=== PATIENT | female | born 1955 | race Caucasian/White ===

== ENCOUNTER 2017-09-23 08:15 | Day surgery (SDC) | payer BC ==
[~2017-09-23 08:15] MED LIST: Lactated Ringers 1,000 ML IV SCH; Sodium Chloride 0.9% 10 ML Syringe FLUSH PRN
[2017-09-23] MEDS ORDERED: Propofol 200 MG/20 ML SDV IV ONE (09:41)
[2017-09-23] MEDS ORDERED: Midazolam 1 MG/ML 2 ML SDV IV ONE (09:41)
[2017-09-23] MEDS ORDERED: Simethicone Drops 40 MG/0.6 ML 30 ML Bottle ONE (09:55)
--- NOTE | 2017-09-23 10:10 | PCM.OPNOTE ---
- General Post-Op/Procedure Note Date of Surgery/Procedure: 09/23/17 Operative Procedure(s): c scope Findings: normal exam Pre Op Diagnosis: change in bowel habits . family hx of colon ca Post-Op Diagnosis: normal scope Anesthesia Technique: MAC Primary Surgeon: Toney Ruiz Anesthesia Provider: Enedina Spence Pathology: none Complications: None Condition: Good Free Text/Narrative:: see dictation
--- NOTE | 2017-09-23 11:08 | OR ---
DATE OF OPERATION: 09/23/2017 SURGEON: Toney Ruiz MD PROCEDURE PERFORMED: Colonoscopy. PREOPERATIVE DIAGNOSIS: Change in bowel habits. POSTOPERATIVE DIAGNOSIS: Normal colonoscopy. INDICATIONS FOR PROCEDURE: This is a 61-year-old white female who was referred with a complaint of some change in her bowel habits. In addition, she does have a family history of colon cancer. She was offered and accepted colonoscopy. DESCRIPTION OF PROCEDURE: After an excellent IV sedation was administered, digital rectal exam was performed. No marked abnormality was noted. Flexible colonoscope was inserted and advanced to the cecum without difficulty. The following findings were noted. Ascending colon, unremarkable. Transverse colon, unremarkable. Descending colon, unremarkable. Sigmoid and rectum, unremarkable. Colon was deflated as the scope was removed. The patient tolerated the procedure well and was taken to the recovery room in a good condition. /[id number] /MARCIO
== END 2017-09-23 11:10 | disposition home or self-care (01) ==
LOC: FB.SDS 08:15
PROVIDERS: ATTEND Surgery
DX: R19.4 Change in bowel habit (principal); I10 Essential (primary) hypertension; M19.90 Unspecified osteoarthritis, unspecified site; E66.01 Morbid (severe) obesity due to excess calories; E78.5 Hyperlipidemia, unspecified; Z80.0 Family history of malignant neoplasm of digestive organs; Z90.49 Acquired absence of other specified parts of digestive tract; Z79.899 Other long term (current) drug therapy; Z88.0 Allergy status to penicillin; Z98.84 Bariatric surgery status; Z90.710 Acquired absence of both cervix and uterus; Z98.51 Tubal ligation status; Z68.39 Body mass index [BMI] 39.0-39.9, adult
CPT/HCPCS: 45378; A9270; J2250; J2704; J7120

== ENCOUNTER 2021-11-06 07:07 | Day surgery (SDC) | payer MEDICARE, OTHER ==
[2021-11-06] MEDS ORDERED: Propofol 200 MG/20 ML SDV IV ONE (07:08)
[2021-11-06] MEDS ORDERED: Lidocaine 1% PF 2 ML SDV INJECT ONE (07:08)
[2021-11-06] MEDS ORDERED: Glycopyrrolate 0.2 MG/ML 5 ML MDV IV ONE (07:08)
== END 2021-11-06 09:15 | disposition home or self-care (01) ==
LOC: FB.SDS 07:07
PROVIDERS: ATTEND Surgery
DX: K92.1 Melena (principal); I10 Essential (primary) hypertension; K21.9 Gastro-esophageal reflux disease without esophagitis; D50.9 Iron deficiency anemia, unspecified; E66.01 Morbid (severe) obesity due to excess calories; M19.90 Unspecified osteoarthritis, unspecified site; Z88.0 Allergy status to penicillin; Z68.41 Body mass index [BMI] 40.0-44.9, adult; Z98.84 Bariatric surgery status; Z98.51 Tubal ligation status; Z98.890 Other specified postprocedural states; Z90.49 Acquired absence of other specified parts of digestive tract; Z90.711 Acquired absence of uterus with remaining cervical stump; Z79.899 Other long term (current) drug therapy; Z86.010 Personal history of colon polyps; Z80.0 Family history of malignant neoplasm of digestive organs
CPT/HCPCS: 00811; 45378; J2704; J3490; J7120